=== PATIENT | female | born 1980 | race Asian ===

== ENCOUNTER 2018-07-01 12:19 | Emergency (ER) | payer BC, MEDICAID, OTHER, SELFPAY ==
[~2018-07-01] VITALS: Ht 175.3 cm; Wt 58.8 kg
[2018-07-01 12:20] VITALS: BP 122/38
== END 2018-07-01 13:46 | disposition home or self-care (01) ==
LOC: ED 13:14
DX: J06.9 Acute upper respiratory infection, unspecified (principal); J20.8 Acute bronchitis due to other specified organisms; B97.89 Other viral agents as the cause of diseases classified elsewhere
CPT/HCPCS: 71046; 99283